=== PATIENT | female | born 1965 | race Hispanic/Latino ===

== ENCOUNTER 2018-09-29 21:29 | Emergency (ER) | payer MEDICAID ==
[2018-09-29 21:50] LABS: APPEARANCE,URINE Clear (CLEAR); BILIRUBIN,URINE Negative (NEGATIVE); COLOR,URINE Yellow (YELLOW); GLUCOSE, URINE (UA) Negative (NEGATIVE); KETONES,URINE Negative (NEGATIVE); LEUKOCYTE ESTERASE ,URINE Trace (NEGATIVE); NITRATE,URINE Negative (NEGATIVE); OCCULT BLOOD,URINE Small (NEGATIVE); PROTEIN,URINE Negative (NEGATIVE)
[2018-09-29 21:59] LABS: BACTERIA,URINE Rare /HPF (None Seen); RBC,URINE 0-1 /HPF (0-1); SQUAMOUS EPITHELIAL CELL,UR Rare /HPF (0-2)
[2018-09-29 22:02] LABS: MEAN CORPUSCULAR HEMOGLOBIN 31.3 pg (27.0-33.0); WHITE BLOOD COUNT (AUTO) 4.8 K/uL (4.8-10.8)
[2018-09-29] MEDS ORDERED: ONDANSETRON HCL 4 MG/2 ML VIAL ONE (22:07)
[2018-09-29 22:15] LABS: ALBUMIN 3.5 g/dL (3.5-5.0); BILIRUBIN,TOTAL 0.3 mg/dL (0.2-1.0); CREATININE 0.7 mg/dL (0.5-1.5); TOTAL PROTEIN, SERUM 7.8 g/dL (6.0-8.3)
[2018-09-29 22:22] LABS: POTASSIUM 2.6 mmol/L (3.5-5.1)
[2018-09-29 22:28] LABS: INR 1.05 (0.85-1.15); PARTIAL THROMBOPLASTIN TIME 28.7 SEC (26.3-35.5)
[2018-09-29 22:34] LABS: BASOPHILS % (AUTO) 0.3 % (0.0-5.0); HEMATOCRIT 38.1 % (36-48); LYMPHOCYTES % (AUTO) 13.3 % (21.0-51.0); MEAN CORPUSCULAR HGB CONC 34.4 g/dL (32.0-36.0); MEAN CORPUSCULAR VOLUME 90.9 fL (79-99); MONOCYTES % (AUTO) 5.5 % (3.0-13.0); NEUTROPHILS % (AUTO) 80.9 % (40.0-77.0); NUCLEATED RED BLOOD CELLS 0.1 % (0.0-0.19); PLATELET COUNT (AUTO) 214 K/uL (130-400); RED BLOOD CELL COUNT(AUTO) 4.19 MIL/uL (4.00-5.50); RED CELL DISTRIBUTION WIDTH 13.2 % (11.0-15.5)
[2018-09-29] MEDS ORDERED: POTASSIUM BICARB/CIT AC 25 MEQ TABLET.EFF ONE (22:38)
[2018-09-30] MEDS ORDERED: METRONIDAZOLE 500 MG TABLET ONE (02:21)
== END 2018-09-30 02:34 | disposition home or self-care (01) ==
LOC: EDH 21:29
DX: R50.9 Fever, unspecified (principal); R11.2 Nausea with vomiting, unspecified; R19.7 Diarrhea, unspecified; F31.9 Bipolar disorder, unspecified; F20.9 Schizophrenia, unspecified; Z90.49 Acquired absence of other specified parts of digestive tract; Z90.710 Acquired absence of both cervix and uterus; Z72.0 Tobacco use
CPT/HCPCS: 36415; 71045; 74176; 76705; 80053; 81001; 82550; 83605; 83690; 85025; 85610; 85730; 87040 ×2; 87088; 87804 ×2; 93005; 96361; 96374; 99284; J2405

== ENCOUNTER 2018-10-05 12:30 | Inpatient (IN) | payer MEDICAID ==
[2018-10-04 23:48] VITALS: BP 94/65
[~2018-10-05] VITALS: Ht 157.5 cm; Wt 67.6 kg
[2018-10-05] MEDS: POTASSIUM CHLORIDE 40 MEQ in SODIUM CHLORIDE 0.9% 1000ML 1,000 ML IV SCH (00:14)
[2018-10-05] MEDS: OXCARBAZEPINE 300 MG TAB PO SCH (00:14)
[2018-10-05] MEDS: ZOSYN 3.375GM+NS 50ML 50 ML IV SCH (00:14)
[2018-10-05 12:45] LABS: BASOPHILS % (AUTO) 0.5 % (0.0-5.0); EOSINOPHILS % (AUTO) 0.1 % (0.0-8.0); HEMATOCRIT 38.1 % (36-48); LYMPHOCYTES % (AUTO) 9.2 % (21.0-51.0); MEAN CORPUSCULAR HEMOGLOBIN 30.6 pg (27.0-33.0); MEAN CORPUSCULAR HGB CONC 33.8 g/dL (32.0-36.0); MEAN CORPUSCULAR VOLUME 90.3 fL (79-99); MONOCYTES % (AUTO) 4.1 % (3.0-13.0); NEUTROPHILS % (AUTO) 86.1 % (40.0-77.0); PLATELET COUNT (AUTO) 173 K/uL (130-400); RED BLOOD CELL COUNT(AUTO) 4.22 MIL/uL (4.00-5.50); RED CELL DISTRIBUTION WIDTH 13.8 % (11.0-15.5); WHITE BLOOD COUNT (AUTO) 7.6 K/uL (4.8-10.8)
[2018-10-05] MEDS ORDERED: ACETAMINOPHEN EXTRA STRENGTH 500 MG TABLET ONE (12:57)
[2018-10-05] MEDS ORDERED: SODIUM CHLORIDE 0.9% 1000ML 1,000 ML IV ONE ×2 (12:57→16:30)
[2018-10-05 12:58] LABS: ALBUMIN 2.8 g/dL (3.5-5.0); BILIRUBIN,DIRECT 0.1 mg/dL (0.0-0.3); BILIRUBIN,TOTAL 0.4 mg/dL (0.2-1.0); CREATININE 0.6 mg/dL (0.5-1.5)
[2018-10-05 13:04] LABS: POTASSIUM 2.9 mmol/L (3.5-5.1)
[2018-10-05 13:17] LABS: APPEARANCE,URINE Cloudy (CLEAR); BILIRUBIN,URINE Negative (NEGATIVE); COLOR,URINE Dark Yellow (YELLOW); GLUCOSE, URINE (UA) Negative (NEGATIVE); KETONES,URINE Trace mg/dL (NEGATIVE); LEUKOCYTE ESTERASE ,URINE Trace (NEGATIVE); NITRATE,URINE Negative (NEGATIVE); OCCULT BLOOD,URINE Negative (NEGATIVE); PH,URINE 6.5 (5.0-8.0); PROTEIN,URINE POS 1+ (NEGATIVE)
[2018-10-05 13:37] LABS: BACTERIA,URINE Rare /HPF (None Seen); RBC,URINE 0-1 /HPF (0-1); SQUAMOUS EPITHELIAL CELL,UR Rare /HPF (0-2)
[2018-10-05] MEDS ORDERED: POTASSIUM BICARB/CIT AC 25 MEQ TABLET.EFF ONE (14:10)
[2018-10-05 15:57] LABS: ALCOHOL, BLOOD < 3 mg/dL (0-10)
[2018-10-05 15:59] LABS: AMPHET/METH SCREEN,URINE NEGATIVE (NEGATIVE); BARBITURATE SCREEN, URINE NEGATIVE (NEGATIVE); BENZODIAZEPINES SCREEN,URINE NEGATIVE (NEGATIVE); CANNABINOID SCREEN,URINE POSITIVE (NEGATIVE); COCAINE SCREEN,URINE POSITIVE (NEGATIVE); OPIATE SCREEN,URINE NEGATIVE (NEGATIVE); PHENCYCLIDINE SCREEN,URINE NEGATIVE (NEGATIVE)
[2018-10-05 16:10] LABS: ACETAMINOPHEN < 1 mcg/mL (10-30); SALICYLATE < 2.8 mg/dL (2.8-20.0)
[2018-10-05] MEDS ORDERED: MAGNESIUM SULFATE 1 GM in SODIUM CHLORIDE 0.9% 50 ML IV SCH (16:45)
[2018-10-05] MEDS ORDERED: IOHEXOL-350 75 ML VIAL IV ONE (16:55)
[2018-10-05] MEDS ORDERED: MAGNESIUM 2GM PREMIX 50ML 50 ML IV ONE (17:50)
[2018-10-05] MEDS ORDERED: ZOSYN 3.375GM+NS 50ML 50 ML IV ONE (19:31)
[2018-10-05] MEDS ORDERED: SODIUM CHLORIDE 0.9% 50 ML IV ONE (19:31)
[2018-10-05] MEDS ORDERED: ACETAMINOPHEN 325 MG TAB ONE (22:15)
[2018-10-06] VITALS (8 sets, daily range): BP systolic 94–134; BP diastolic 58–80
[2018-10-06] MEDS: POTASSIUM CHLORIDE 40 MEQ in SODIUM CHLORIDE 0.9% 1000ML 1,000 ML IV SCH ×3 (00:16→20:28)
[2018-10-06] MEDS: MORPHINE SULFATE 2 MG/ML 1ML SYG IVP PRN ×3 (00:27→23:28)
[2018-10-06] MEDS ORDERED: OXCA300T28 PO (01:18)
[2018-10-06] MEDS ORDERED: DIPH25TA22 PO (01:18)
[2018-10-06] MEDS ORDERED: FLUO40CA7 PO (01:18)
[2018-10-06] MEDS: ZOSYN 3.375GM+NS 50ML 50 ML IV SCH ×3 (03:26→17:56)
[2018-10-06 05:23] LABS: BASOPHILS % (AUTO) 0.3 % (0.0-5.0); EOSINOPHILS % (AUTO) 0.2 % (0.0-8.0); HEMATOCRIT 31.8 % (36-48); LYMPHOCYTES % (AUTO) 11.2 % (21.0-51.0); MEAN CORPUSCULAR HEMOGLOBIN 29.9 pg (27.0-33.0); MEAN CORPUSCULAR VOLUME 90.5 fL (79-99); MONOCYTES % (AUTO) 5.4 % (3.0-13.0); NEUTROPHILS % (AUTO) 82.9 % (40.0-77.0); PLATELET COUNT (AUTO) 173 K/uL (130-400); RED BLOOD CELL COUNT(AUTO) 3.51 MIL/uL (4.00-5.50); RED CELL DISTRIBUTION WIDTH 13.7 % (11.0-15.5)
[2018-10-06 05:52] LABS: ALBUMIN 2.2 g/dL (3.5-5.0); BILIRUBIN,DIRECT 0.1 mg/dL (0.0-0.3); BILIRUBIN,TOTAL 0.2 mg/dL (0.2-1.0); CREATININE 0.6 mg/dL (0.5-1.5); MAGNESIUM 2.2 mg/dL (1.80-2.40); TOTAL PROTEIN, SERUM 5.6 g/dL (6.0-8.3)
[2018-10-06] MEDS: OXCARBAZEPINE 300 MG TAB PO SCH ×2 (08:42→20:27)
[2018-10-06] MEDS: FLUOXETINE HCL 10 MG CAPSULE PO SCH (08:43)
[2018-10-06] MEDS: ACETAMINOPHEN 325 MG TAB PO PRN ×2 (12:18→23:24)
[2018-10-06] MEDS ORDERED: VANCOMYCIN HCL 1 GM VIAL IV SCH (13:45)
[2018-10-06] MEDS: KETOROLAC TROMETHAMINE 15MG/ML IV SCH ×2 (15:16→20:28)
[2018-10-06] MEDS: VANCOMYCIN 1GM+NS 250ML 250 ML IV SCH (15:18)
[2018-10-06] MEDS: TRAZODONE HCL 50 MG TAB PO SCH (21:00)
[2018-10-07] MEDS: ZOSYN 3.375GM+NS 50ML 50 ML IV SCH ×2 (01:04→09:13)
[2018-10-07] MEDS: KETOROLAC TROMETHAMINE 15MG/ML IV SCH ×2 (01:45→07:45)
[2018-10-07 04:06] VITALS: BP 100/64
[2018-10-07] MEDS: VANCOMYCIN 1GM+NS 250ML 250 ML IV SCH ×2 (04:22→14:13)
[2018-10-07] MEDS: POTASSIUM CHLORIDE 40 MEQ in SODIUM CHLORIDE 0.9% 1000ML 1,000 ML IV SCH ×2 (04:22→21:44)
[2018-10-07 05:39] LABS: BASOPHILS % (AUTO) 0.6 % (0.0-5.0); EOSINOPHILS % (AUTO) 0.1 % (0.0-8.0); HEMATOCRIT 31.9 % (36-48); LYMPHOCYTES % (AUTO) 13.3 % (21.0-51.0); MEAN CORPUSCULAR HGB CONC 34.1 g/dL (32.0-36.0); MONOCYTES % (AUTO) 5.3 % (3.0-13.0); NEUTROPHILS % (AUTO) 80.7 % (40.0-77.0); NUCLEATED RED BLOOD CELLS 0.1 % (0.0-0.19); PLATELET COUNT (AUTO) 244 K/uL (130-400); RED BLOOD CELL COUNT(AUTO) 3.51 MIL/uL (4.00-5.50); WHITE BLOOD COUNT (AUTO) 5.8 K/uL (4.8-10.8)
[2018-10-07 05:56] LABS: CREATININE 0.5 mg/dL (0.5-1.5); MAGNESIUM 1.8 mg/dL (1.80-2.40); POTASSIUM 4.4 mmol/L (3.5-5.1)
[2018-10-07 08:00] VITALS: BP 117/77
[2018-10-07] MEDS: FLUOXETINE HCL 10 MG CAPSULE PO SCH (09:14)
[2018-10-07] MEDS: OXCARBAZEPINE 300 MG TAB PO SCH ×2 (09:14→20:12)
[2018-10-07 12:00] VITALS: BP 169/88
[2018-10-07] MEDS: ACETAMINOPHEN 325 MG TAB PO PRN ×2 (12:28→21:44)
[2018-10-07 15:44] VITALS: BP 99/64
[2018-10-07] MEDS: FLUCONAZOLE 400 MG/NS 200 ML 200 ML IV SCH (16:46)
[2018-10-07] MEDS: MEROPENEM 1 GM VIAL IVP SCH ×2 (16:46→21:44)
[2018-10-07] MEDS: OSELTAMIVIR PHOSPHATE 75 MG CAP PO SCH ×2 (16:47→20:12)
[2018-10-07 20:05] VITALS: BP 107/73
[2018-10-07] MEDS: TRAZODONE HCL 50 MG TAB PO SCH (21:00)
[2018-10-07] MEDS: MORPHINE SULFATE 2 MG/ML 1ML SYG IVP PRN (21:53)
[2018-10-08] VITALS: BP 110/75
[2018-10-08 04:00] VITALS: BP 119/68
[2018-10-08] MEDS: VANCOMYCIN 1GM+NS 250ML 250 ML IV SCH ×2 (04:27→15:04)
[2018-10-08 04:59] LABS: BASOPHILS % (AUTO) 0.4 % (0.0-5.0); EOSINOPHILS % (AUTO) 0.5 % (0.0-8.0); HEMATOCRIT 32.8 % (36-48); LYMPHOCYTES % (AUTO) 24.7 % (21.0-51.0); MEAN CORPUSCULAR HEMOGLOBIN 30.2 pg (27.0-33.0); MEAN CORPUSCULAR HGB CONC 33.6 g/dL (32.0-36.0); MONOCYTES % (AUTO) 9.2 % (3.0-13.0); NEUTROPHILS % (AUTO) 65.2 % (40.0-77.0); NUCLEATED RED BLOOD CELLS 0.1 % (0.0-0.19); PLATELET COUNT (AUTO) 258 K/uL (130-400); RED BLOOD CELL COUNT(AUTO) 3.64 MIL/uL (4.00-5.50); RED CELL DISTRIBUTION WIDTH 14.5 % (11.0-15.5); WHITE BLOOD COUNT (AUTO) 5.7 K/uL (4.8-10.8)
[2018-10-08 05:13] LABS: ALANINE AMINOTRANSFERASE 41 U/L (12-78); ALBUMIN 2.3 g/dL (3.5-5.0); ASPARTATE AMINOTRANSFERASE 54 U/L (10-37); BILIRUBIN,DIRECT < 0.1 mg/dL (0.0-0.3); BILIRUBIN,TOTAL 0.2 mg/dL (0.2-1.0); CARBON DIOXIDE 26 mmol/L (21-32); CHLORIDE 102 mmol/L (101-111); CREATININE 0.5 mg/dL (0.5-1.5); GLOMERULAR FILTR. RATE CALC 138 mL/min (>60); GLUCOSE,RANDOM 108 mg/dL (70-105); POTASSIUM 4.3 mmol/L (3.5-5.1); SODIUM SERUM 136 mmol/L (136-145); TOTAL PROTEIN, SERUM 6.1 g/dL (6.0-8.3); UREA NITROGEN, BLOOD 5 mg/dL (7-18)
[2018-10-08] MEDS: MEROPENEM 1 GM VIAL IVP SCH ×3 (06:05→22:00)
[2018-10-08 07:00] VITALS: BP 113/68
[2018-10-08] MEDS: OSELTAMIVIR PHOSPHATE 75 MG CAP PO SCH ×2 (08:22→22:00)
[2018-10-08] MEDS: FLUOXETINE HCL 10 MG CAPSULE PO SCH (08:22)
[2018-10-08] MEDS: OXCARBAZEPINE 300 MG TAB PO SCH ×2 (08:22→22:00)
[2018-10-08] MEDS: POTASSIUM CHLORIDE 40 MEQ in SODIUM CHLORIDE 0.9% 1000ML 1,000 ML IV SCH ×2 (09:16→22:01)
[2018-10-08 11:23] VITALS: BP 114/74
[2018-10-08] MEDS: FLUCONAZOLE 400 MG/NS 200 ML 200 ML IV SCH (15:50)
[2018-10-08 19:00] VITALS: BP 121/65
[2018-10-08] MEDS: TRAZODONE HCL 50 MG TAB PO SCH (21:00)
[2018-10-08] MEDS: MORPHINE SULFATE 2 MG/ML 1ML SYG IVP PRN (22:03)
[2018-10-08 23:16] VITALS: BP 120/89
[2018-10-09] MEDS: VANCOMYCIN 1GM+NS 250ML 250 ML IV SCH ×2 (03:15→14:41)
[2018-10-09 03:18] VITALS: BP 104/74
[2018-10-09 05:15] LABS: HEMATOCRIT 33.6 % (36-48); MEAN CORPUSCULAR HEMOGLOBIN 30.8 pg (27.0-33.0); MEAN CORPUSCULAR VOLUME 90.5 fL (79-99); PLATELET COUNT (AUTO) 384 K/uL (130-400); RED BLOOD CELL COUNT(AUTO) 3.72 MIL/uL (4.00-5.50); RED CELL DISTRIBUTION WIDTH 14.2 % (11.0-15.5); WHITE BLOOD COUNT (AUTO) 6.5 K/uL (4.8-10.8)
[2018-10-09] MEDS: POTASSIUM CHLORIDE 40 MEQ in SODIUM CHLORIDE 0.9% 1000ML 1,000 ML IV SCH (05:17)
[2018-10-09] MEDS: MEROPENEM 1 GM VIAL IVP SCH ×3 (05:17→21:50)
[2018-10-09 05:25] LABS: CREATININE 0.6 mg/dL (0.5-1.5); POTASSIUM 4.2 mmol/L (3.5-5.1)
[2018-10-09 07:00] VITALS: BP 117/78
[2018-10-09] MEDS: OSELTAMIVIR PHOSPHATE 75 MG CAP PO SCH ×2 (08:19→21:49)
[2018-10-09] MEDS: OXCARBAZEPINE 300 MG TAB PO SCH ×2 (08:19→21:50)
[2018-10-09] MEDS: FLUOXETINE HCL 10 MG CAPSULE PO SCH (08:19)
[2018-10-09 11:00] VITALS: BP 99/63
[2018-10-09] MEDS: FLUCONAZOLE 400 MG/NS 200 ML 200 ML IV SCH (14:42)
[2018-10-09 16:00] VITALS: BP 111/71
[2018-10-09 19:00] VITALS: BP 124/89
[2018-10-09] MEDS: TRAZODONE HCL 50 MG TAB PO SCH (21:00)
[2018-10-09] MEDS: MORPHINE SULFATE 2 MG/ML 1ML SYG IVP PRN (21:58)
[2018-10-09 23:54] VITALS: BP 124/75
[2018-10-10] MEDS: VANCOMYCIN 1GM+NS 250ML 250 ML IV SCH (03:42)
[2018-10-10 04:00] VITALS: BP 107/71
[2018-10-10] MEDS: MEROPENEM 1 GM VIAL IVP SCH ×3 (06:17→23:57)
[2018-10-10 08:17] VITALS: BP 105/60
[2018-10-10 08:22] VITALS: BP 116/76
[2018-10-10] MEDS: OSELTAMIVIR PHOSPHATE 75 MG CAP PO SCH ×2 (11:42→20:48)
[2018-10-10] MEDS: OXCARBAZEPINE 300 MG TAB PO SCH ×2 (11:42→20:48)
[2018-10-10] MEDS: FLUOXETINE HCL 10 MG CAPSULE PO SCH (11:42)
[2018-10-10 11:48] VITALS: BP 99/69
[2018-10-10 16:08] VITALS: BP 119/87
[2018-10-10] MEDS: FLUCONAZOLE 400 MG/NS 200 ML 200 ML IV SCH (17:31)
[2018-10-10] MEDS ORDERED: VANCOMYCIN PROTOCOL PER PHARMACY IV SCH (19:15)
[2018-10-10 19:30] VITALS: BP 119/79
[2018-10-10] MEDS: TRAZODONE HCL 50 MG TAB PO SCH (20:48)
[2018-10-10] MEDS: MORPHINE SULFATE 2 MG/ML 1ML SYG IVP PRN (20:49)
[2018-10-10] MEDS ORDERED: COMPOUND IV REFRIGERATED 1 EACH MISC ONE (21:17)
[2018-10-10] MEDS: VANCOMYCIN 1.25 GM in SODIUM CHLORIDE 0.9% 250 ML IV SCH (22:21)
[2018-10-11 00:02] VITALS: BP 126/80
[2018-10-11 03:48] VITALS: BP 112/71
[2018-10-11 04:36] LABS: HEMATOCRIT 32.8 % (36-48); MEAN CORPUSCULAR HEMOGLOBIN 31.4 pg (27.0-33.0); MEAN CORPUSCULAR HGB CONC 34.5 g/dL (32.0-36.0); MEAN CORPUSCULAR VOLUME 91.1 fL (79-99); PLATELET COUNT (AUTO) 454 K/uL (130-400); RED CELL DISTRIBUTION WIDTH 14.1 % (11.0-15.5); WHITE BLOOD COUNT (AUTO) 5.1 K/uL (4.8-10.8)
[2018-10-11 04:57] LABS: CREATININE 0.6 mg/dL (0.5-1.5); POTASSIUM 4.2 mmol/L (3.5-5.1)
[2018-10-11] MEDS ORDERED: COMPOUND IV REFRIGERATED 1 EACH MISC ONE (05:18)
[2018-10-11] MEDS: MEROPENEM 1 GM VIAL IVP SCH (05:49)
[2018-10-11] MEDS: VANCOMYCIN 1.25 GM in SODIUM CHLORIDE 0.9% 250 ML IV SCH (05:50)
[2018-10-11 08:36] VITALS: BP 117/74
[2018-10-11] MEDS: OSELTAMIVIR PHOSPHATE 75 MG CAP PO SCH (11:00)
[2018-10-11] MEDS: OXCARBAZEPINE 300 MG TAB PO SCH (11:00)
[2018-10-11] MEDS: FLUOXETINE HCL 10 MG CAPSULE PO SCH (11:01)
[2018-10-11] MEDS ORDERED: COMPOUND IV REFRIGERATED 1 EACH IVSOLN MISC PRN (11:45)
[2018-10-11 12:29] VITALS: BP 119/75
[2018-10-11] MEDS ORDERED: VANCOMYCIN 1GM+NS 250ML 250 ML IV SCH (22:00)
== END 2018-10-11 16:05 | disposition home or self-care (01) | DRG 720 ==
LOC: EDH 12:30 → OBSVTOIN 12:31 → EDHIP 12:31 → UNDOADMOB 15:01 → 3AH 22:59
PROVIDERS: ADMIT Internal Medicine; ATTEND Internal Medicine
DX: A41.9 Sepsis, unspecified organism (principal); R45.851 Suicidal ideations; E44.0 Moderate protein-calorie malnutrition; E87.1 Hypo-osmolality and hyponatremia; N39.0 Urinary tract infection, site not specified; E87.6 Hypokalemia; F31.60 Bipolar disorder, current episode mixed, unspecified; F43.10 Post-traumatic stress disorder, unspecified; N60.01 Solitary cyst of right breast; D64.9 Anemia, unspecified; J11.1 Influenza due to unidentified influenza virus with other respiratory manifestations; F14.10 Cocaine abuse, uncomplicated; F12.10 Cannabis abuse, uncomplicated; Z90.710 Acquired absence of both cervix and uterus; Z79.899 Other long term (current) drug therapy; Z83.3 Family history of diabetes mellitus; Z71.51 Drug abuse counseling and surveillance of drug abuser; Z68.27 Body mass index [BMI] 27.0-27.9, adult
CPT/HCPCS: 36415; 71045; 74178; 80048; 80076; 80202; 80305; 80339; 81001; 83605; 83630; 83735; 85025; 85027; 86140; 87040; 87046; 87088; 87177; 87804; 93005; A4218; G0480; G0481; J1450; J1885; J2185; J2543; J3370; J3475; J3480; J7030; Q9967

== ENCOUNTER 2019-01-09 15:06 | Inpatient (IN) | payer MEDICAID ==
[~2019-01-09] VITALS: Ht 157.5 cm; Wt 67.0 kg
[~2019-01-09 15:06] MED LIST: DIPH25TA22 PO; FLUO40CA7 PO; OXCA300T28 PO
[2019-01-09 15:40] LABS: BASOPHILS % (AUTO) 0.3 % (0.0-5.0); EOSINOPHILS % (AUTO) 0.1 % (0.0-8.0); HEMATOCRIT 39.7 % (36-48); LYMPHOCYTES % (AUTO) 7.3 % (21.0-51.0); MEAN CORPUSCULAR HEMOGLOBIN 31.6 pg (27.0-33.0); MEAN CORPUSCULAR HGB CONC 33.7 g/dL (32.0-36.0); MEAN CORPUSCULAR VOLUME 93.8 fL (79-99); MONOCYTES % (AUTO) 6.2 % (3.0-13.0); NEUTROPHILS % (AUTO) 86.1 % (40.0-77.0); PLATELET COUNT (AUTO) 315 K/uL (130-400); RED BLOOD CELL COUNT(AUTO) 4.23 MIL/uL (4.00-5.50); RED CELL DISTRIBUTION WIDTH 14.6 % (11.0-15.5); WHITE BLOOD COUNT (AUTO) 9.2 K/uL (4.8-10.8)
[2019-01-09 16:02] LABS: INR 0.94 (0.85-1.15); PARTIAL THROMBOPLASTIN TIME 28.5 SEC (26.3-35.5); PROTHROMBIN TIME 9.9 SEC (9.6-11.6)
[2019-01-09] MEDS ORDERED: ONDANSETRON HCL 4 MG/2 ML VIAL ONE (16:02)
[2019-01-09 16:04] LABS: CREATININE 0.8 mg/dL (0.5-1.5); POTASSIUM 4.9 mmol/L (3.5-5.1)
[2019-01-09 16:08] LABS: ALBUMIN 4.4 g/dL (3.5-5.0); BILIRUBIN,TOTAL 0.3 mg/dL (0.2-1.0); TOTAL PROTEIN, SERUM 8.9 g/dL (6.0-8.3)
[2019-01-09] MEDS ORDERED: LEVOFLOXACIN 500 MG/D5W 100 ML 100 ML ONE (16:59)
[2019-01-09] MEDS: METRONIDAZOLE 500MG/100ML BAG 100 ML IV SCH ×2 (18:30→22:00)
[2019-01-09] MEDS ORDERED: ONDANSETRON HCL 4 MG/2 ML VIAL IV PRN (18:45)
[2019-01-09] MEDS ORDERED: ACETAMINOPHEN 325 MG TAB PO PRN (18:45)
[2019-01-09 18:49] LABS: APPEARANCE,URINE Cloudy (CLEAR); BILIRUBIN,URINE Negative (NEGATIVE); COLOR,URINE Yellow (YELLOW); GLUCOSE, URINE (UA) Negative (NEGATIVE); KETONES,URINE Negative (NEGATIVE); LEUKOCYTE ESTERASE ,URINE Negative (NEGATIVE); NITRATE,URINE Negative (NEGATIVE); OCCULT BLOOD,URINE Trace (NEGATIVE); PROTEIN,URINE POS 1+ (NEGATIVE); UROBILINOGEN,URINE 0.2 mg/dL (0.2-1.0)
[2019-01-09 18:58] LABS: AMPHET/METH SCREEN,URINE NEGATIVE (NEGATIVE); BARBITURATE SCREEN, URINE NEGATIVE (NEGATIVE); BENZODIAZEPINES SCREEN,URINE NEGATIVE (NEGATIVE); CANNABINOID SCREEN,URINE POSITIVE (NEGATIVE); COCAINE SCREEN,URINE POSITIVE (NEGATIVE); OPIATE SCREEN,URINE NEGATIVE (NEGATIVE); PHENCYCLIDINE SCREEN,URINE NEGATIVE (NEGATIVE)
[2019-01-09 19:17] LABS: BACTERIA,URINE Few /HPF (None Seen); MUCUS,URINE Many LPF (None Seen); RBC,URINE None Seen /HPF (0-1)
[2019-01-09 19:18] LABS: HYALINE CASTS, URINE 26-50 /LPF (0-1 /LPF); SQUAMOUS EPITHELIAL CELL,UR None Seen /HPF (0-2)
[2019-01-09] MEDS ORDERED: METRONIDAZOLE 500MG/100ML BAG 100 ML ONE (19:26)
[2019-01-09] MEDS ORDERED: SODIUM CHLORIDE 0.9% 1000ML 1,000 ML IV ONE ×2 (19:26→22:32)
[2019-01-09] MEDS ORDERED: FAMOTIDINE/PF 20 MG/2 ML VIAL IV ONE (19:26)
[2019-01-09] MEDS ORDERED: MORPHINE SULFATE 4 MG/1ML SYG IV PRN (20:15)
[2019-01-09] MEDS: FAMOTIDINE/PF 20 MG/2 ML VIAL IV SCH (21:00)
[2019-01-09] MEDS ORDERED: ZOSYN 3.375GM+NS 50ML 50 ML IV ONE (22:32)
[2019-01-10] MEDS ORDERED: METRONIDAZOLE 500MG/100ML BAG 100 ML ONE (03:34)
[2019-01-10] MEDS ORDERED: MORPHINE SULFATE 4 MG/1ML SYG ONE (03:34)
[2019-01-10] MEDS ORDERED: ZOSYN 3.375GM+NS 50ML 50 ML IV ONE (04:30)
[2019-01-10] MEDS: METRONIDAZOLE 500MG/100ML BAG 100 ML IV SCH ×3 (06:00→21:33)
[2019-01-10 06:30] LABS: HEMATOCRIT 35.3 % (36-48); MEAN CORPUSCULAR HEMOGLOBIN 31.2 pg (27.0-33.0); MEAN CORPUSCULAR HGB CONC 33.4 g/dL (32.0-36.0); MEAN CORPUSCULAR VOLUME 93.5 fL (79-99); PLATELET COUNT (AUTO) 244 K/uL (130-400); RED BLOOD CELL COUNT(AUTO) 3.78 MIL/uL (4.00-5.50); RED CELL DISTRIBUTION WIDTH 14.4 % (11.0-15.5)
[2019-01-10 06:45] LABS: ALBUMIN 3.4 g/dL (3.5-5.0); BILIRUBIN,TOTAL 0.3 mg/dL (0.2-1.0); CREATININE 0.7 mg/dL (0.5-1.5); MAGNESIUM 1.8 mg/dL (1.80-2.40); POTASSIUM 3.9 mmol/L (3.5-5.1); TOTAL PROTEIN, SERUM 7.2 g/dL (6.0-8.3)
[2019-01-10 07:00] LABS: EOSINOPHILS % (MANUAL) 1 % (1-6); LYMPHOCYTES % (MANUAL) 21 % (22-44); MAN.DIFF COMMENT-IMPRESSION MANUAL DIFFERENTIAL; MONOCYTES % (MANUAL) 10 % (2-9); SEGMENTED NEUTROPHILS % 68 % (40-70)
[2019-01-10 07:03] LABS: PLATELET MORPHOLOGY COMMENT ADEQUATE
[2019-01-10] MEDS ORDERED: ENOXAPARIN SODIUM 30 MG/0.3 ML SQ ONE (08:44)
[2019-01-10] MEDS ORDERED: FAMOTIDINE/PF 20 MG/2 ML VIAL IV ONE (08:45)
[2019-01-10] MEDS: ENOXAPARIN SODIUM 30 MG/0.3 ML SQ SCH (09:00)
[2019-01-10] MEDS: FAMOTIDINE/PF 20 MG/2 ML VIAL IV SCH ×2 (09:00→21:32)
[2019-01-10] MEDS ORDERED: DIPHENHYDRAMINE HCL 25 MG CAPSULE PO PRN (09:15)
[2019-01-10] MEDS ORDERED: MORPHINE SULFATE 2 MG/ML 1ML SYG ONE (09:47)
[2019-01-10 10:40] VITALS: BP 114/72
[2019-01-10] MEDS: OXCARBAZEPINE 300 MG TAB PO SCH ×2 (12:26→21:33)
[2019-01-10] MEDS: FLUOXETINE HCL 20 MG CAPSULE PO SCH (12:26)
[2019-01-10] MEDS: ZOSYN 3.375GM+NS 50ML 50 ML IV SCH ×2 (12:27→21:33)
[2019-01-10] MEDS: SODIUM CHLORIDE 0.9% 1000ML 1,000 ML IV SCH ×2 (12:28→18:33)
--- NOTE | 2019-01-10 15:58 | NUR ---
DC Plan Discussed dcp w/ patient. Lives w/ alicia Carmona. Independent ADLs. Denies any HH, provider, or DME. States feels safe returning home upon discharge. CD Addendum: 01/10/19 at 1559 by JAMES ZAZUETA CM Amended: Links added.
[2019-01-10 16:00] VITALS: BP 123/81
--- NOTE | 2019-01-10 17:36 | NUR ---
DR NAM WAS NOTIFIED OF THE CONSULT, SHE SAID THAT SHE WILL CHECK THE PATIENT ACCOUNT AND CALL ME BACK.
[2019-01-10 19:20] VITALS: BP 132/88
[2019-01-10 19:32] LABS: % IRON SATURATION 11.6 % (22-44)
[2019-01-10] MEDS: MORPHINE SULFATE 2 MG/ML 1ML SYG IV PRN (21:35)
[2019-01-11] VITALS (7 sets, daily range): BP systolic 120–137; BP diastolic 76–86
[2019-01-11] MEDS: SODIUM CHLORIDE 0.9% 1000ML 1,000 ML IV SCH ×3 (02:36→18:17)
[2019-01-11 05:12] LABS: HEMATOCRIT 32.9 % (36-48); MEAN CORPUSCULAR HEMOGLOBIN 31.3 pg (27.0-33.0); MEAN CORPUSCULAR HGB CONC 33.5 g/dL (32.0-36.0); MEAN CORPUSCULAR VOLUME 93.6 fL (79-99); PLATELET COUNT (AUTO) 225 K/uL (130-400); RED BLOOD CELL COUNT(AUTO) 3.52 MIL/uL (4.00-5.50); RED CELL DISTRIBUTION WIDTH 14.1 % (11.0-15.5); WHITE BLOOD COUNT (AUTO) 3.9 K/uL (4.8-10.8)
[2019-01-11 05:29] LABS: CREATININE 0.6 mg/dL (0.5-1.5); POTASSIUM 3.4 mmol/L (3.5-5.1)
[2019-01-11] MEDS: ZOSYN 3.375GM+NS 50ML 50 ML IV SCH ×3 (06:46→20:38)
[2019-01-11] MEDS: METRONIDAZOLE 500MG/100ML BAG 100 ML IV SCH ×2 (06:54→18:17)
[2019-01-11] MEDS ORDERED: POTASSIUM CHLORIDE 10% ELIXIR 20 MEQ/15 ML UDCUP PO PRN (08:15)
[2019-01-11] MEDS ORDERED: LIDOCAINE HCL-MPF 1% 2ML VIAL IVP PRN (08:15)
[2019-01-11] MEDS ORDERED: POTASSIUM CHLORIDE 20MEQ/100ML 100 ML IV PRN (08:15)
[2019-01-11] MEDS ORDERED: KETOROLAC TROMETHAMINE 15MG/ML IV PRN (08:30)
[2019-01-11] MEDS: OXCARBAZEPINE 300 MG TAB PO SCH ×2 (09:15→20:38)
[2019-01-11] MEDS: FAMOTIDINE/PF 20 MG/2 ML VIAL IV SCH ×2 (09:15→20:38)
[2019-01-11] MEDS: FLUOXETINE HCL 20 MG CAPSULE PO SCH (09:15)
[2019-01-11] MEDS: ENOXAPARIN SODIUM 30 MG/0.3 ML SQ SCH (09:16)
[2019-01-11] MEDS: MORPHINE SULFATE 2 MG/ML 1ML SYG IV PRN ×2 (09:20→18:17)
--- NOTE | 2019-01-11 15:00 | NUR ---
JOSELO PADILLA, AWARE OF STOOL RESULTS
[2019-01-12] MEDS: METRONIDAZOLE 500MG/100ML BAG 100 ML IV SCH ×4 (00:26→22:00)
[2019-01-12 03:40] VITALS: BP 131/75
[2019-01-12] MEDS: ZOSYN 3.375GM+NS 50ML 50 ML IV SCH ×3 (05:25→21:23)
[2019-01-12 05:44] LABS: BASOPHILS % (AUTO) 0.4 % (0.0-5.0); HEMATOCRIT 31.6 % (36-48); LYMPHOCYTES % (AUTO) 30.3 % (21.0-51.0); MEAN CORPUSCULAR HEMOGLOBIN 31.7 pg (27.0-33.0); MEAN CORPUSCULAR HGB CONC 34.5 g/dL (32.0-36.0); MEAN CORPUSCULAR VOLUME 91.8 fL (79-99); MONOCYTES % (AUTO) 12.5 % (3.0-13.0); NEUTROPHILS % (AUTO) 55.8 % (40.0-77.0); NUCLEATED RED BLOOD CELLS 0.1 % (0.0-0.19); PLATELET COUNT (AUTO) 240 K/uL (130-400); RED BLOOD CELL COUNT(AUTO) 3.44 MIL/uL (4.00-5.50); RED CELL DISTRIBUTION WIDTH 13.9 % (11.0-15.5); WHITE BLOOD COUNT (AUTO) 3.2 K/uL (4.8-10.8)
[2019-01-12 05:56] LABS: CREATININE 0.5 mg/dL (0.5-1.5); POTASSIUM 3.3 mmol/L (3.5-5.1)
[2019-01-12 08:00] VITALS: BP 130/78
[2019-01-12] MEDS: FLUOXETINE HCL 20 MG CAPSULE PO SCH (09:53)
[2019-01-12] MEDS: OXCARBAZEPINE 300 MG TAB PO SCH ×2 (09:53→21:23)
[2019-01-12] MEDS: FAMOTIDINE/PF 20 MG/2 ML VIAL IV SCH ×2 (09:54→21:23)
[2019-01-12] MEDS: POTASSIUM CHLORIDE 20 MEQ ERTAB PO PRN ×2 (09:54→16:49)
[2019-01-12] MEDS: ENOXAPARIN SODIUM 30 MG/0.3 ML SQ SCH (09:55)
[2019-01-12] MEDS: MORPHINE SULFATE 2 MG/ML 1ML SYG IV PRN ×2 (10:05→21:31)
[2019-01-12 12:00] VITALS: BP 130/82
--- NOTE | 2019-01-12 14:59 | NUR ---
ELDA Note: [facility] pending ins auth and acceptance CM met with pt discussed recs for short term placement abx admin, pt agreeable, JEREMIAH signed for any In network SNF that will accept. Faxed order, clinicals, and pasrr to [facility]. Spoke to [facility], will come eval pt. Pt pending ins auth and acceptance. Primary nurse aware. CM to cont to follow up.
[2019-01-12 16:00] VITALS: BP 143/77
[2019-01-12] MEDS: SODIUM CHLORIDE 0.9% 1000ML 1,000 ML IV SCH (16:44)
[2019-01-12 19:45] VITALS: BP 135/77
[2019-01-13 00:11] VITALS: BP 154/81
[2019-01-13 03:53] VITALS: BP 118/73
[2019-01-13 04:53] LABS: BASOPHILS % (AUTO) 0.6 % (0.0-5.0); EOSINOPHILS % (AUTO) 1.4 % (0.0-8.0); HEMATOCRIT 32.6 % (36-48); MEAN CORPUSCULAR HEMOGLOBIN 31.6 pg (27.0-33.0); MEAN CORPUSCULAR HGB CONC 34.4 g/dL (32.0-36.0); MEAN CORPUSCULAR VOLUME 91.9 fL (79-99); MONOCYTES % (AUTO) 13.8 % (3.0-13.0); NEUTROPHILS % (AUTO) 34.2 % (40.0-77.0); NUCLEATED RED BLOOD CELLS 0.1 % (0.0-0.19); PLATELET COUNT (AUTO) 262 K/uL (130-400); RED BLOOD CELL COUNT(AUTO) 3.54 MIL/uL (4.00-5.50); RED CELL DISTRIBUTION WIDTH 14.1 % (11.0-15.5)
[2019-01-13 05:04] LABS: CREATININE 0.6 mg/dL (0.5-1.5); POTASSIUM 4.5 mmol/L (3.5-5.1)
[2019-01-13] MEDS: ZOSYN 3.375GM+NS 50ML 50 ML IV SCH (05:20)
[2019-01-13] MEDS: METRONIDAZOLE 500MG/100ML BAG 100 ML IV SCH (05:20)
[2019-01-13 05:49] LABS: BAND NEUTROPHILS % (MANUAL) 1 % (0-2); EOSINOPHILS % (MANUAL) 3 % (1-6); LYMPHOCYTES % (MANUAL) 57 % (22-44); MONOCYTES % (MANUAL) 8 % (2-9); REACTIVE LYMPHOCYTES 7 % (0-0); SEGMENTED NEUTROPHILS % 24 % (40-70)
[2019-01-13 05:50] LABS: MAN.DIFF COMMENT-IMPRESSION MANUAL DIFFERENTIAL
[2019-01-13 07:30] VITALS: BP 144/79
[2019-01-13] MEDS: ENOXAPARIN SODIUM 30 MG/0.3 ML SQ SCH (10:07)
[2019-01-13] MEDS: FLUOXETINE HCL 20 MG CAPSULE PO SCH (10:07)
[2019-01-13] MEDS: FAMOTIDINE/PF 20 MG/2 ML VIAL IV SCH (10:07)
[2019-01-13] MEDS: OXCARBAZEPINE 300 MG TAB PO SCH (10:07)
[2019-01-13] MEDS: MORPHINE SULFATE 2 MG/ML 1ML SYG IV PRN (10:14)
[2019-01-13 11:00] VITALS: BP 150/85
[2019-01-13] MEDS ORDERED: METR500T PO (11:38)
--- NOTE | 2019-01-13 12:31 | NUR ---
PER ADMISSION DATABASE, PT HAS ALREADY REC'D FLU SHOT IN 08/2018 Addendum: 01/13/19 at 1233 by ANTONIO CHAMBERLAIN RN RN Amended: Links added. Addendum: 01/13/19 at 1317 by ANTONIO CHAMBERLAIN RN RN DISCHARGE INTERVENTIONS COMPLETED. ENDORSED TO PRIMARY NURSE CHRIS FOR COMPLETION OF DISCHARGE EDUCATION AND REMOVAL OF PIV.
--- NOTE | 2019-01-13 12:51 | NUR ---
CM Note: Cancelled [facility], dcp to home Spoke to [facility] dc/[facility], cancelled referral, pt will be on PO abx. Pt safe to dc to home via private car. Primary nurse aware. CM to cont to follow up.
--- NOTE | 2019-01-13 15:00 | NUR ---
PATIENT DISCHARGED HOME D/C INSTRUCTIONS GIVE USING TEACH BACK TECHNIQUE RE; NEW MEDS AND HOME MEDS, S/S TO [facility] FOR AND WHEN TO CALL 911 OR MD. FOLLOW UP WITH IN 3 DAYS. PLEASE CALL THE OFFICE TO SCHEDULE AN APPOINTMENT ON WEDNESDAY. [phone]. CALL SOONER OR RETURN TO ER WITH ANY CONCERNS. DIAL 911 FOR EMERGENCIES. \ IV OUT INTACT, AOX3, DENIES ANY PAIN.
== END 2019-01-13 15:21 | disposition home or self-care (01) | DRG 248 ==
LOC: EDH 15:06 → EDHIP 15:07 → 3CH 01-10 10:33
PROVIDERS: ADMIT Internal Medicine; ATTEND Internal Medicine
DX: A04.72 Enterocolitis due to Clostridium difficile, not specified as recurrent (principal); E87.1 Hypo-osmolality and hyponatremia; E86.0 Dehydration; F14.10 Cocaine abuse, uncomplicated; F12.10 Cannabis abuse, uncomplicated; F20.9 Schizophrenia, unspecified; F31.9 Bipolar disorder, unspecified; F43.10 Post-traumatic stress disorder, unspecified; E87.6 Hypokalemia; Z83.3 Family history of diabetes mellitus; Z90.710 Acquired absence of both cervix and uterus; Z93.3 Colostomy status; Z87.440 Personal history of urinary (tract) infections
CPT/HCPCS: 36415; 74176; 80048; 80053; 80305; 81001; 82150; 82270; 82550; 83540; 83550; 83630; 83690; 83735; 84484; 85025; 85027; 85610; 85730; 87040; 87046; 87088; 87177; 87324; 87338; 87507; 93005; A6250; G0378; J1650; J1956; J2270; J2405; J2543; J3490; J7030